=== PATIENT | female | born 1975 | race Hispanic/Latino ===

== ENCOUNTER 2018-07-20 18:54 | Observation (INO) | payer BC, OTHER ==
[2018-07-20 19:08] VITALS: BMI 30.9
[2018-07-20] MEDS ORDERED: Morphine 2 mg/ml ISec IVP STA (19:42)
[2018-07-20] MEDS ORDERED: Sodium Chloride 0.9% 1,000 ML IV STA (19:42)
--- NOTE | 2018-07-20 19:53 | ED PDOC ---
Arrival/HPI - General Chief Complaint: Abdominal Pain Time Seen by Provider: 07/20/18 19:27 Historian: Patient - History of Present Illness Narrative History of Present Illness (Text): 07/20/18 19:50 A 43 year old male, whose past medical history includes, laproscopic ovarian cystectomy, past bowel perforation secondary to bowel obstruction, ADHD, questionable Alessandro- Parkinson's- White (WPW). who presents to emergency departm ent complaint of onset of mid abdominal discomfort today. Patent states pain is severe. Prior she states she fell to the ground felt like she was going to pass out. She states pain has progressively worsened throughout the day. Patient denies history of any chest pain, nausea, vomiting, diarrhea , headache, back pain, no urinary complaints, or any other complaints. Time/Duration: Other (Today) Symptom Onset: Sudden Symptom Course: Unchanged, Worsening Activities at Onset: Rest, Light Context: Home Past Medical History - Provider Review Nursing Documentation Reviewed: Yes - Past History Past History: No Previous - Infectious Disease Hx of Infectious Diseases: None - Tetanus Immunization Tetanus Immunization: Unknown - Pulmonary Hx Asthma: Yes - Hematological/Oncological Hx Blood Transfusions: No Hx Blood Transfusion Reaction: No - Musculoskeletal/Rheumatological Hx Falls: No - Gastrointestinal Hx Bowel Surgery: Yes Hx Nausea: Yes - Psychiatric Hx Depression: No Hx Emotional Abuse: No Hx Physical Abuse: No Hx Substance Use: No - Surgical History Hx Section: Yes Hx Tonsillectomy: Yes Other/Comment: Perforated bowel during procedure - Anesthesia Hx Anesthesia: Yes Hx Anesthesia Reactions: No Hx Malignant Hyperthermia: No - Suicidal Assessment Feels Threatened In Home Enviroment: No Family/Social History - Physician Review Nursing Documentation Reviewed: Yes Family/Social History: No Known Family HX Smoking Status: Former Smoker Hx Alcohol Use: Yes (occasionally) Frequency of alcohol use: Socially Hx Substance Use: No Hx Substance Use Treatment: No Allergies/Home Meds Allergies/Adverse Reactions: Allergies No Known Allergies Allergy (Verified 07/20/18 19:11) Home Medications: Home Meds Medication Instructions Recorded Confirmed Methylphenidate Hydrochlorid 54 mg PO DAILY 07/22/13 12/25/13 [Concerta] Review of Systems - Physician Review All systems were reviewed & negative as marked: Yes - Review of Systems Cardiovascular: absent: Chest Pain Gastrointestinal: Abdominal Pain. absent: Diarrhea, Nausea, Vomiting Genitourinary Female: absent: Urine Output Changes Neurological: absent: Headache Physical Exam Vital Signs Reviewed: Yes Vital Signs Temp Pulse Resp BP Pulse Ox 07/20/18 19:08 98.4 F 69 18 142/90 99 Temperature: Afebrile Blood Pressure: Normal Pulse: Regular Respiratory Rate: Normal Appearance: Positive for: Well-Appearing, Non-Toxic, Comfortable Pain Distress: None Mental Status: Positive for: Alert and Oriented X 3 - Systems Exam Head: Present: Atraumatic, Normocephalic Pupils: Present: PERRL Extroacular Muscles: Present: EOMI Conjunctiva: Present: Normal Mouth: Present: Moist Mucous Membranes Neck: Present: Normal Range of Motion Respiratory/Chest: Present: Clear to Auscultation, Good Air Exchange. No: Respiratory Distress, Accessory Muscle Use Cardiovascular: Present: Regular Rate and Rhythm, Normal S1, S2. No: Murmurs Abdomen: Present: Tenderness (positive diffuse abdominal tenderness. greater in the mid- abdomen.), Normal Bowel Sounds (positive bowel sounds). No: Distention, Peritoneal Signs Back: Present: Normal Inspection Upper Extremity: Present: Normal Inspection. No: Cyanosis, Edema Lower Extremity: Present: Normal Inspection. No: Edema Neurological: Present: GCS=15, CN II-XII Intact, Speech Normal Skin: Present: Warm, Dry, Normal Color. No: Rashes Psychiatric: Present: Alert, Oriented x 3, Normal Insight, Normal Concentration Medical Decision Making ED Course and Treatment: 07/20/18 19:54 Impression: A 43 year old female presents to the emergency department with a complaint of sudden onset abdominal pain. Plan: -- Abdomen/Pelvis CT -- Head CT -- EKG -- Chest X-ray -- Urinalysis -- Labs -- Morphine, Zofran, and IV Fluids -- Reassess and disposition Prior Visits: Notes and results from previous visits were reviewed. Progress Notes: 07/20/18 21:51 CT Abdomen and Pelvis Without IV contrast CLINICAL HISTORY: Abd. pain and feeling faint TECHNIQUE: Axial computed tomography images of the abdomen and pelvis without intravenous contrast. CONTRAST: No IV contrast. COMPARISON: None provided. FINDINGS: LUNG BASES: The lung bases appear clear. No pleural effusions are seen. LIVER: Unremarkable. GALLBLADDER AND BILE DUCTS: The gallbladder appears within normal limits. No radioopaque gallstones are seen. No biliary ductal dilatation is evident. PANCREAS: Unremarkable. SPLEEN: Unremarkable. ADRENAL GLANDS: Unremarkable. KIDNEYS, URETERS, AND BLADDER: The kidneys appear within normal limits. There is no hydronephrosis or hydroureter. No urinary calculi are seen. STOMACH AND BOWEL: Unremarkable appearance of the stomach and bowel. No evidence of bowel obstruction. No evidence suggesting enteritis or colitis. APPENDIX: No evidence of acute appendicitis on CT examination. PERITONEUM: No free fluid. No free air. LYMPH NODES: No lymphadenopathy is evident. REPRODUCTIVE: Uterus and ovaries are unremarkable. VASCULATURE: No evidence of abdominal aortic aneurysm. BONES: No aggressive appearing osseous lesion. No acute osseous pathology evident. IMPRESSION: No acute intra-abdominal or pelvic abnormality. 07/20/18 21:51 CT Head without Intravenous Contrast. CLINICAL HISTORY: Near syncope TECHNIQUE: Axial computed tomography images of the head/brain without intravenous contrast. 967.43 mGy-cm COMPARISON: None provided. FINDINGS: BRAIN No acute intraparenchymal hemorrhage. No mass lesion. No CT evidence for acute territorial infarct. No midline shift or extra-axial collections. VENTRICLES: No hydrocephalus. ORBITS: The orbits are unremarkable. SINUSES AND MASTOIDS: The mastoid air cells are clear. Chronic pansinusitis. BONES: No fracture. SOFT TISSUES: Unremarkable. IMPRESSION: Chronic pansinusitis. No acute intracranial abnormality. 07/20/18 22:10 Case was discussed with the medical office asst and Dr Michelle, who accepts to the hospitalist service. - Lab Interpretations I have reviewed the lab results: Yes - RAD Interpretation Radiology Orders: 07/20/18 19:41 CHEST PORTABLE [RAD] Stat 07/20/18 19:42 ABD & PELVIS W/O PO OR IV CONT [CT] Stat 07/20/18 19:43 HEAD W/O CONTRAST [CT] Stat - EKG Interpretation Interpreted by ED Physician: Yes Type: 12 lead EKG - Medication Orders Current Medication Orders: Sodium Chloride (Sodium Chloride 0.9%) 1,000 mls @ 999 mls/hr IV .Q1H1M STA Stop: 07/20/18 20:42 Discontinued Medications Morphine Sulfate (Morphine) 4 mg IVP STAT STA Stop: 07/20/18 19:43 Ondansetron HCl (Zofran Inj) 4 mg IVP ONCE ONE Stop: 07/20/18 19:43 - Scribe Statement The provider has reviewed the documentation as recorded by the Scribe Anabella Fung Provider Dahlia Attestation: All medical record entries made by the Scribe were at my direction and personally dictated by me. I have reviewed the chart and agree that the record accurately reflects my personal performance of the history, physical exam, medical decision making, and the department course for this patient. I have also personally directed, reviewed, and agree with the discharge instructions and disposition. Disposition/Present on Arrival - Present on Arrival Any Indicators Present on Arrival: No History of DVT/PE: No History of Uncontrolled Diabetes: No Urinary Catheter: No History of Decub. Ulcer: No History Surgical Site Infection Following: None - Disposition Have Diagnosis and Disposition been Completed?: Yes Diagnosis: Near syncope, Abdominal pain Disposition: HOSPITALIZED Disposition Time: 22:11 Patient Problems: Current Active Problems Problem Status Onset Abdominal pain Acute Near syncope Acute Condition: STABLE Referrals: Sean Cooper MD [Primary Care Provider] - Follow up with primary Forms: Vert[employer] (Syriac)
[2018-07-20 20:05] LABS: HEMOGLOBIN 13.7 g/dL (12.0-16.0); MEAN CELL VOLUME 90.3 fl (80.0-105.0); MEAN CORPUSCULAR HEMOGLOBIN 30.9 pg (25.0-35.0); MEAN CORPUSCULAR HGB CONC 34.3 g/dl (31.0-37.0); MEAN PLATELET VOLUME 10.3 fl (7.0-11.0); RBC 4.43 10^6/uL (3.5-6.1); RED CELL DISTRIBUTION WIDTH 12.8 % (11.5-14.5); WHITE BLOOD COUNT 10.7 10^3/uL (4.5-11.0)
[2018-07-20 20:36] LABS: ALB/GLOB RATIO 1.3 (1.1-1.8); ALBUMIN 4.6 g/dL (3.0-4.8); ALT/SGPT 25 U/L (7-56); AST/SGOT 25 U/L (14-36); BLOOD UREA NITROGEN 18 mg/dL (7-21); CALCIUM 9.8 mg/dL (8.4-10.5); GFR NON-AFRICAN AMERICAN > 60; LIPASE 110 U/L (23-300)
[2018-07-20 20:55] LABS: TROPONIN I < 0.01 ng/mL
[2018-07-20 22:23] LABS: URINE APPEARANCE CLEAR (CLEAR); URINE BILIRUBIN NEGATIVE (NEGATIVE); URINE BLOOD TRACE-INTACT (NEGATIVE); URINE GLUCOSE (UA) NEGATIVE (NEGATIVE); URINE LEUKOCYTE ESTERASE TRACE Leu/uL (NEGATIVE); URINE PROTEIN NEGATIVE mg/dL (<30 mg/dL); URINE UROBILINOGEN 0.2 E.U./dL (<1 E.U./dL)
[2018-07-21] MEDS: POLYETHYLENE GLYCOL 3350 17 GM/Dose PACKET PO SCH ×2 (00:03→10:32)
[2018-07-21] MEDS: Sodium Chloride 0.9% 1,000 ML IV SCH ×2 (00:03→06:59)
[2018-07-21 00:28] LABS: BARBITURATES, UR NEGATIVE (NEGATIVE); BENZODIAZEPINES, UR NEGATIVE (NEGATIVE); OPIATES, UR POSITIVE (NEGATIVE); PHENCYCLIDINE, UR NEGATIVE (NEGATIVE)
--- NOTE | 2018-07-21 02:16 | CP.PCM.HP ---
<VidaLudwin - Last Filed: 07/21/18 22:47> History of Present Illness - History of Present Illness History of Present Illness: Ludwin Mcpherson DO PGY1. H&P for Hospitalist Service C.C: abdominal pain 43 y/o female with PMH of SBOx2 presents to ED for one day of salvador-umbilical pain that's sharp, intermittent, 6-9/10, radiates to lateral abdominal wall b/l, relieved by b/l leg flexion, worsens in supine position, not related to food ingestion but she ate in a restaurant the night before. Patient started having this pain in am after finishing her daily exercise. Pain is associated with nausea, chills, diaphoresis and near syncope. She denied vomiting, hematemesis, blood per rectum, dark stool fever. She used OTC gas-X, Tums that was not effective. Her LMP was on 07/03 and denied having any vaginal bleeding or symptoms. Patient denies chest pain, palpitations, headache, vomiting, diarrhea, back pain, urinary urgency/frequency. 12 points ROS reviewed with positive finding as above. 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) PSH: laproscopic ovarian cystectomy Meds: OTC gas-X, Tums ALL: NKDA Soc Hx: ex-smoking, denies alcohol, drug use Fam Hx: no contributory Present on Admission - Present on Admission Any Indicators Present on Admission: No Past Patient History - Infectious Disease Hx of Infectious Diseases: None - Tetanus Immunizations Tetanus Immunization: Unknown - Past Social History Smoking Status: Former Smoker - PULMONARY Hx Asthma: Yes - HEMATOLOGICAL/ONCOLOGICAL Hx Blood Transfusions: No Hx Blood Transfusion Reaction: No - MUSCULOSKELETAL/RHEUMATOLOGICAL Hx Falls: No - GASTROINTESTINAL Hx Bowel Surgery: Yes Hx Nausea: Yes - PSYCHIATRIC Hx Depression: No Hx Emotional Abuse: No Hx Physical Abuse: No Hx Substance Use: No - SURGICAL HISTORY Hx Section: Yes Hx Tonsillectomy: Yes Other/Comment: Perforated bowel during procedure - ANESTHESIA Hx Anesthesia: Yes Hx Anesthesia Reactions: No Hx Malignant Hyperthermia: No Meds Allergies/Adverse Reactions: Allergies Allergy/AdvReac Type Severity Reaction Status Date / Time No Known Allergies Allergy Verified 07/20/18 19:11 Physical Exam - Constitutional Appears: Well, No Acute Distress - Head Exam Head Exam: ATRAUMATIC, NORMAL INSPECTION, NORMOCEPHALIC - Eye Exam Eye Exam: EOMI, Normal appearance, PERRL Pupil Exam: NORMAL ACCOMODATION, PERRL - ENT Exam ENT Exam: Mucous Membranes Moist, Normal Exam - Neck Exam Neck exam: Positive for: Normal Inspection - Respiratory Exam Respiratory Exam: Clear to Auscultation Bilateral, NORMAL BREATHING PATTERN - Cardiovascular Exam Cardiovascular Exam: REGULAR RHYTHM, RRR, +S1, +S2. absent: Gallop, Rubs - GI/Abdominal Exam GI & Abdominal Exam: Normal Bowel Sounds, Soft. absent: Tenderness - Extremities Exam Extremities exam: Positive for: normal inspection - Back Exam Back exam: NORMAL INSPECTION - Neurological Exam Neurological exam: Alert, CN II-XII Intact, Normal Gait, Oriented x3, Reflexes Normal - Psychiatric Exam Psychiatric exam: Normal Affect, Normal Mood - Skin Skin Exam: Dry, Intact, Normal Color, Warm Results - Vital Signs Recent Vital Signs: Last Vital Signs Temp 98.4 F 07/20/18 19:08 Pulse 62 07/21/18 01:41 Resp 18 07/21/18 01:41 BP 118/76 07/21/18 01:41 Pulse Ox 98 07/21/18 01:41 - Labs Result Diagrams: 07/20/18 19:41 07/20/18 20:10 Labs: Laboratory Results - last 24 hr 07/20/18 07/20/18 07/20/18 19:41 20:10 21:59 WBC 10.7 RBC 4.43 Hgb 13.7 Hct 40.0 MCV 90.3 MCH 30.9 MCHC 34.3 RDW 12.8 Plt Count 298 MPV 10.3 Sodium 137 Potassium 3.9 Chloride 104 Carbon Dioxide 25 Anion Gap 12 BUN 18 Creatinine 0.8 Est GFR ( Amer) > 60 Est GFR (Non-Af Amer) > 60 Random Glucose 108 Calcium 9.8 Total Bilirubin 0.4 AST 25 ALT 25 Alkaline Phosphatase 65 Lactate Dehydrogenase 451 Total Creatine Kinase 63 Troponin I < 0.01 Total Protein 8.2 Albumin 4.6 Globulin 3.6 Albumin/Globulin Ratio 1.3 Lipase 110 Urine Color straw Urine Appearance Clear Urine pH 6.0 Ur Specific [employer] 1.020 Urine Protein Negative Urine Glucose (UA) Negative Urine Ketones Negative Urine Blood Trace-intact H Urine Nitrate Negative Urine Bilirubin Negative Urine Urobilinogen 0.2 Ur Leukocyte Esterase Trace H Urine RBC 5 - 10 Urine WBC 2 - 5 Ur Epithelial Cells 4 - 5 Urine Opiates Screen Urine Methadone Screen Ur Barbiturates Screen Ur Phencyclidine Scrn Ur Amphetamines Screen U Benzodiazepines Scrn U Oth Cocaine Metabols U Cannabinoids Screen 07/20/18 23:47 WBC RBC Hgb Hct MCV MCH MCHC RDW Plt Count MPV Sodium Potassium Chloride Carbon Dioxide Anion Gap BUN Creatinine Est GFR ( Amer) Est GFR (Non-Af Amer) Random Glucose Calcium Total Bilirubin AST ALT Alkaline Phosphatase Lactate Dehydrogenase Total Creatine Kinase Troponin I Total Protein Albumin Globulin Albumin/Globulin Ratio Lipase Urine Color Urine Appearance Urine pH Ur Specific [employer] Urine Protein Urine Glucose (UA) Urine Ketones Urine Blood Urine Nitrate Urine Bilirubin Urine Urobilinogen Ur Leukocyte Esterase Urine RBC Urine WBC Ur Epithelial Cells Urine Opiates Screen Positive H Urine Methadone Screen Negative Ur Barbiturates Screen Negative Ur Phencyclidine Scrn Negative Ur Amphetamines Screen Negative U Benzodiazepines Scrn Negative U Oth Cocaine Metabols Negative U Cannabinoids Screen Negative Assessment & Plan - Assessment and Plan (Free Text) Assessment: 43 y/o female with PMH of SBO x2 presents to ED for one day of salvador-umbilical pain. CT abdomen/pelvis is normal. CT head shows no ICH Plan: Abdominal pain: -h/o SBO X2 with bowel resection x1. medical management x1 -CT A/P: no acute intra-abdominal or pelvic abnormality -morphine prn for pain -continue zofran, pantoprazole, miralax Near syncope: -h/o questionable Alessandro-Parkinson's-White (WPW) holter monitor x4 weeks did not show any abnormalities -CT head: no acute intracranial abnormality -CXR: no acute pathology -EKG ordered -cardiac monitoring -NS @125 ml/hr -supp O2 prn -UA, UDS Prophylaxis: -DVT: SCD -GI ppx: protonix -Clear liquid diet Dispo: Patient admitted for observation Case reviewed and plan discussed with attending Dr Michelle <Cindy Michelle - Last Filed: 07/22/18 06:35> Results - Vital Signs Recent Vital Signs: Last Vital Signs Temp 97.9 F 07/21/18 12:00 Pulse 71 07/21/18 12:00 Resp 21 07/21/18 12:00 BP 109/71 07/21/18 12:00 Pulse Ox 98 07/21/18 05:59 - Labs Result Diagrams: 07/21/18 05:20 07/21/18 05:20 Labs: Laboratory Results - last 24 hr 07/21/18 07/21/18 05:20 05:20 WBC 7.4 D RBC 4.28 Hgb 12.9 Hct 39.1 MCV 91.4 MCH 30.1 MCHC 33.0 RDW 13.1 Plt Count 286 MPV 10.4 Gran % 45.2 L Lymph % (Auto) 38.4 H Donley % (Auto) 9.7 H Eos % (Auto) 6.2 H Baso % (Auto) 0.5 Gran # 3.33 Lymph # (Auto) 2.8 Donley # (Auto) 0.7 H Eos # (Auto) 0.5 Baso # (Auto) 0.04 Sodium 137 Potassium 4.1 Chloride 106 Carbon Dioxide 25 Anion Gap 10 BUN 11 Creatinine 0.7 Est GFR ( Amer) > 60 Est GFR (Non-Af Amer) > 60 Random Glucose 96 Calcium 9.2 Phosphorus 4.5 Magnesium 1.7 Total Bilirubin 0.6 AST 16 ALT 34 Alkaline Phosphatase 57 Total Protein 6.8 Albumin 3.8 Globulin 3.1 Albumin/Globulin Ratio 1.2 Attending/Attestation - Attestation I have personally seen and examined this patient.: Yes I have fully participated in the care of the patient.: Yes I have reviewed all pertinent clinical information: Yes
[2018-07-21 06:00] VITALS: O2SAT 98
[2018-07-21 06:31] LABS: BASO # 0.04 K/mm3 (0.0-2.0); BASO % 0.5 % (0.0-3.0); EOS # 0.5 (0.0-0.7); EOS % 6.2 % (1.5-5.0); GRAN # 3.33 (1.4-6.5); GRAN % 45.2 % (50.0-68.0); HEMOGLOBIN 12.9 g/dL (12.0-16.0); LYMPH # 2.8 (1.2-3.4); LYMPH % 38.4 % (22.0-35.0); MEAN CELL VOLUME 91.4 fl (80.0-105.0); MEAN CORPUSCULAR HEMOGLOBIN 30.1 pg (25.0-35.0); MEAN PLATELET VOLUME 10.4 fl (7.0-11.0); MONO # 0.7 (0.1-0.6); MONO % 9.7 % (1.0-6.0); RBC 4.28 10^6/uL (3.5-6.1); RED CELL DISTRIBUTION WIDTH 13.1 % (11.5-14.5); WHITE BLOOD COUNT 7.4 10^3/uL (4.5-11.0)
[2018-07-21 06:48] LABS: ALB/GLOB RATIO 1.2 (1.1-1.8); ALBUMIN 3.8 g/dL (3.0-4.8); ALT/SGPT 34 U/L (7-56); AST/SGOT 16 U/L (14-36); BLOOD UREA NITROGEN 11 mg/dL (7-21); CALCIUM 9.2 mg/dL (8.4-10.5); GFR NON-AFRICAN AMERICAN > 60
--- NOTE | 2018-07-21 08:55 | RAD ---
Date of service: 07/20/2018 HISTORY: abdominal pain COMPARISON: 12/26/2013 FINDINGS: LUNGS: No active pulmonary disease. PLEURA: No significant pleural effusion identified, no pneumothorax apparent. CARDIOVASCULAR: No aortic atherosclerotic calcification present. Normal cardiac size. No pulmonary vascular congestion. OSSEOUS STRUCTURES: No significant abnormalities. VISUALIZED UPPER ABDOMEN: Normal. OTHER FINDINGS: None. IMPRESSION: No active disease.
--- NOTE | 2018-07-21 09:03 | CT ---
Date of service: 07/20/2018 PROCEDURE: CT HEAD WITHOUT CONTRAST. HISTORY: near syncope COMPARISON: None available. TECHNIQUE: Axial computed tomography images were obtained through the head/brain without intravenous contrast. Radiation dose: Total exam DLP = 967.43 mGy-cm. This CT exam was performed using one or more of the following dose reduction techniques: Automated exposure control, adjustment of the mA and/or kV according to patient size, and/or use of iterative reconstruction technique. FINDINGS: HEMORRHAGE: No intracranial hemorrhage. BRAIN: Normal rodriguez-white matter differentiation and density are appreciated throughout the cerebrum and cerebellum with the brainstem appearing unremarkable as well. There is no mass effect. There is no suspicious extra-axial fluid collection and the midline brain anatomy appears diffusely unremarkable. VENTRICLES: Unremarkable. No hydrocephalus. CALVARIUM: Unremarkable. PARANASAL SINUSES: Multifocal advanced ethmoid sinusitis with mild bilateral maxillary sinus disease appreciated. MASTOID AIR CELLS: Unremarkable as visualized. No inflammatory changes. OTHER FINDINGS: None. IMPRESSION: Unremarkable unenhanced head CT. Concordant preliminary report from [facility], 07/20/2018 9:35 p.m..
--- NOTE | 2018-07-21 10:50 | CT ---
Date of service: 07/20/2018 PROCEDURE: CT Abdomen and Pelvis without intravenous contrast HISTORY: pain COMPARISON: None. TECHNIQUE: Technique. Contrast dose: Radiation dose: Total exam DLP = 1095.02 mGy-cm. This CT exam was performed using one or more of the following dose reduction techniques: Automated exposure control, adjustment of the mA and/or kV according to patient size, and/or use of iterative reconstruction technique. FINDINGS: LOWER THORAX: Unremarkable. LIVER: Unremarkable. No gross lesion or ductal dilatation. GALLBLADDER AND BILE DUCTS: Unremarkable. PANCREAS: Unremarkable. No gross lesion or ductal dilatation. SPLEEN: Unremarkable. ADRENALS: Unremarkable. No mass. KIDNEYS AND URETERS: Unremarkable. No hydronephrosis. No solid mass. VASCULATURE: Unremarkable. No aortic aneurysm. No aortic atherosclerotic calcification or mural plaque present. BOWEL: Unremarkable. No obstruction. No gross mural thickening. APPENDIX: Unremarkable. Normal appendix. PERITONEUM: Unremarkable. No free fluid. No free air. LYMPH NODES: Unremarkable. No enlarged lymph nodes. BLADDER: Unremarkable. REPRODUCTIVE: Unremarkable. BONES: No acute fracture. OTHER FINDINGS: The report concurs with the preliminary [facility] report IMPRESSION: No acute intra-abdominal findings
[2018-07-21 12:19] VITALS: BP 109/71; PULSE 71; RESP 21; TEMP 97.9
--- NOTE | 2018-07-21 13:25 | CP.PCM.DIS ---
<Maria Luisa Mitchell L - Last Filed: 07/21/18 13:26> Provider - Provider Date of Admission: 07/20/18 22:03 Attending physician: Suleiman Parker MD Primary care physician: Sean Cooper MD Consults: none Time Spent in preparation of Discharge (in minutes): 35 Diagnosis - Discharge Diagnosis (1) Abdominal pain Status: Resolved Hospital Course - Lab Results Lab Results: Most Recent Lab Values WBC 7.4 10^3/uL (4.5-11.0) D 07/21/18 05:20 RBC 4.28 10^6/uL (3.5-6.1) 07/21/18 05:20 Hgb 12.9 g/dL (12.0-16.0) 07/21/18 05:20 Hct 39.1 % (36.0-48.0) 07/21/18 05:20 MCV 91.4 fl (80.0-105.0) 07/21/18 05:20 MCH 30.1 pg (25.0-35.0) 07/21/18 05:20 MCHC 33.0 g/dl (31.0-37.0) 07/21/18 05:20 RDW 13.1 % (11.5-14.5) 07/21/18 05:20 Plt Count 286 10^3/uL (120.0-450.0) 07/21/18 05:20 MPV 10.4 fl (7.0-11.0) 07/21/18 05:20 Gran % 45.2 % (50.0-68.0) L 07/21/18 05:20 Lymph % (Auto) 38.4 % (22.0-35.0) H 07/21/18 05:20 Osborne % (Auto) 9.7 % (1.0-6.0) H 07/21/18 05:20 Eos % (Auto) 6.2 % (1.5-5.0) H 07/21/18 05:20 Baso % (Auto) 0.5 % (0.0-3.0) 07/21/18 05:20 Gran # 3.33 (1.4-6.5) 07/21/18 05:20 Lymph # (Auto) 2.8 (1.2-3.4) 07/21/18 05:20 Osborne # (Auto) 0.7 (0.1-0.6) H 07/21/18 05:20 Eos # (Auto) 0.5 (0.0-0.7) 07/21/18 05:20 Baso # (Auto) 0.04 K/mm3 (0.0-2.0) 07/21/18 05:20 Sodium 137 mmol/L (132-148) 07/21/18 05:20 Potassium 4.1 mmol/L (3.6-5.0) 07/21/18 05:20 Chloride 106 mmol/L (98-107) 07/21/18 05:20 Carbon Dioxide 25 mmol/L (21-33) 07/21/18 05:20 Anion Gap 10 (10-20) 07/21/18 05:20 BUN 11 mg/dL (7-21) 07/21/18 05:20 Creatinine 0.7 mg/dl (0.7-1.2) 07/21/18 05:20 Est GFR ( Amer) > 60 07/21/18 05:20 Est GFR (Non-Af Amer) > 60 07/21/18 05:20 Random Glucose 96 mg/dL (70-110) 07/21/18 05:20 Calcium 9.2 mg/dL (8.4-10.5) 07/21/18 05:20 Phosphorus 4.5 mg/dL (2.5-4.5) 07/21/18 05:20 Magnesium 1.7 mg/dL (1.7-2.2) 07/21/18 05:20 Total Bilirubin 0.6 mg/dL (0.2-1.3) 07/21/18 05:20 AST 16 U/L (14-36) 07/21/18 05:20 ALT 34 U/L (7-56) 07/21/18 05:20 Alkaline Phosphatase 57 U/L (38-126) 07/21/18 05:20 Lactate Dehydrogenase 451 U/L (333-699) 07/20/18 20:10 Total Creatine Kinase 63 U/L (35-230) 07/20/18 20:10 Troponin I < 0.01 ng/mL 07/20/18 20:10 Total Protein 6.8 g/dL (5.8-8.3) 07/21/18 05:20 Albumin 3.8 g/dL (3.0-4.8) 07/21/18 05:20 Globulin 3.1 gm/dL 07/21/18 05:20 Albumin/Globulin Ratio 1.2 (1.1-1.8) 07/21/18 05:20 Lipase 110 U/L (23-300) 07/20/18 20:10 Urine Color straw (YELLOW) 07/20/18 21:59 Urine Appearance Clear (CLEAR) 07/20/18 21:59 Urine pH 6.0 (4.7-8.0) 07/20/18 21:59 Ur Specific [place] 1.020 (1.005-1.035) 07/20/18 21:59 Urine Protein Negative mg/dL (<30 mg/dL) 07/20/18 21:59 Urine Glucose (UA) Negative mg/dL (NEGATIVE) 07/20/18 21:59 Urine Ketones Negative mg/dL (NEGATIVE) 07/20/18 21:59 Urine Blood Trace-intact (NEGATIVE) H 07/20/18 21:59 Urine Nitrate Negative (NEGATIVE) 07/20/18 21:59 Urine Bilirubin Negative (NEGATIVE) 07/20/18 21:59 Urine Urobilinogen 0.2 E.U./dL (<1 E.U./dL) 07/20/18 21:59 Ur Leukocyte Esterase Trace Zana/uL (NEGATIVE) H 07/20/18 21:59 Urine RBC 5 - 10 /hpf (0-2) 07/20/18 21:59 Urine WBC 2 - 5 /hpf (0-6) 07/20/18 21:59 Ur Epithelial Cells 4 - 5 /hpf (0-5) 07/20/18 21:59 Urine Opiates Screen Positive (NEGATIVE) H 07/20/18 23:47 Urine Methadone Screen Negative (NEGATIVE) 07/20/18 23:47 Ur Barbiturates Screen Negative (NEGATIVE) 07/20/18 23:47 Ur Phencyclidine Scrn Negative (NEGATIVE) 07/20/18 23:47 Ur Amphetamines Screen Negative (NEGATIVE) 07/20/18 23:47 U Benzodiazepines Scrn Negative (NEGATIVE) 07/20/18 23:47 U Oth Cocaine Metabols Negative (NEGATIVE) 07/20/18 23:47 U Cannabinoids Screen Negative (NEGATIVE) 07/20/18 23:47 - Hospital Course Hospital Course: On admission: 43 y/o female with PMH of SBOx2 presents to ED for one day of salvador-umbilical pain that's sharp, intermittent, 6-9/10, radiates to lateral abdominal wall b/l, relieved by b/l leg flexion, worsens in supine position, not related to food ingestion but she ate in a restaurant the night before. Patient started having this pain in am after finishing her daily exercise. Pain is associated with nausea, chills, diaphoresis and near syncope. She denied vom iting, hematemesis, blood per rectum, dark stool fever. She used OTC gas-X, Tums that was not effective. Her LMP was on 07/03 and denied having any vaginal bleeding or symptoms. Patient denies chest pain, palpitations, headache, vomiting, diarrhea, back pain, urinary urgency/frequency. During hospital stay: Patient had CT of abdomen and pelvis which showed no acute intra abdominal or pelvic abnormality. Patient was given morphine for pain, zofran, pantoprazole, miralax. Patient also had CT head done which showed no acute intracranial abnormality. EKG did not show any WPW. CXR was negative for any acute pathology. Patient tolerated clear liquid diet and was advanced to soft diet which she tolerated. Patient was optimized for discharge and prescribed zofran and omeprazole. Please see EMR for full summary of patient's hospital course. - Date & Time of H&P Date of H&P: 07/21/18 Time of H&P: 02:11 Discharge Exam - Additional Findings Additional findings: - Constitutional Appears: Well, No Acute Distress - Head Exam Head Exam: ATRAUMATIC, NORMOCEPHALIC - Eye Exam Eye Exam: EOMI, Normal appearance - ENT Exam ENT Exam: Mucous Membranes Moist, Normal Exam - Neck Exam Neck exam: Positive for: Normal Inspection - Respiratory Exam Respiratory Exam: Clear to Auscultation Bilateral, NORMAL BREATHING PATTERN - Cardiovascular Exam Cardiovascular Exam: REGULAR RHYTHM, RRR, +S1, +S2. absent: Gallop, Rubs - GI/Abdominal Exam GI & Abdominal Exam: Normal Bowel Sounds, Soft. absent: Tenderness - Extremities Exam Extremities exam: Positive for: normal inspection - Back Exam Back exam: NORMAL INSPECTION - Neurological Exam Neurological exam: Alert, CN II-XII Intact, Oriented x3 - Psychiatric Exam Psychiatric exam: Normal Affect, Normal Mood - Skin Skin Exam: Dry, Intact, Normal Color, Warm Discharge Plan - Discharge Medications Prescriptions: RX: Omeprazole 20 mg PO DAILY PRN 14 Days tablet.dr MIRANDA Reason: Dyspepsia Ondansetron [Zofran] 4 mg PO DAILY PRN 14 Days tab PRN Reason: Nausea/Vomiting - Follow Up Plan Condition: STABLE Disposition: HOME/ ROUTINE Patient education suggested?: Yes Instructions: Syncope (Fainting) (DC), Stomach Ache and Stomach Upset, Acute Abdominal Pain (DC), Acute Abdominal Pain (GEN) Additional Instructions: Please follow up with your primary medical doctor within one week. You have been prescribed omeprazole and zofran. Please take these as they are prescribed. Resume your home medications as prescribed. Return to ED if symptoms return or worsen. Referrals: Sean Cooper MD [Primary Care Provider] - <Suleiman Parker - Last Filed: 07/22/18 13:49> Provider - Provider Date of Admission: 07/20/18 22:03 Attending physician: Suleiman Parker MD Primary care physician: Sean Cooper MD Hospital Course - Lab Results Lab Results: Micro Results 07/20/18 21:45 Urine,Clean Catch Urine Culture - Final No Growth (<1,000 CFU/ML) Most Recent Lab Values WBC 7.4 10^3/uL (4.5-11.0) D 07/21/18 05:20 RBC 4.28 10^6/uL (3.5-6.1) 07/21/18 05:20 Hgb 12.9 g/dL (12.0-16.0) 07/21/18 05:20 Hct 39.1 % (36.0-48.0) 07/21/18 05:20 MCV 91.4 fl (80.0-105.0) 07/21/18 05:20 MCH 30.1 pg (25.0-35.0) 07/21/18 05:20 MCHC 33.0 g/dl (31.0-37.0) 07/21/18 05:20 RDW 13.1 % (11.5-14.5) 07/21/18 05:20 Plt Count 286 10^3/uL (120.0-450.0) 07/21/18 05:20 MPV 10.4 fl (7.0-11.0) 07/21/18 05:20 Gran % 45.2 % (50.0-68.0) L 07/21/18 05:20 Lymph % (Auto) 38.4 % (22.0-35.0) H 07/21/18 05:20 Osborne % (Auto) 9.7 % (1.0-6.0) H 07/21/18 05:20 Eos % (Auto) 6.2 % (1.5-5.0) H 07/21/18 05:20 Baso % (Auto) 0.5 % (0.0-3.0) 07/21/18 05:20 Gran # 3.33 (1.4-6.5) 07/21/18 05:20 Lymph # (Auto) 2.8 (1.2-3.4) 07/21/18 05:20 Osborne # (Auto) 0.7 (0.1-0.6) H 07/21/18 05:20 Eos # (Auto) 0.5 (0.0-0.7) 07/21/18 05:20 Baso # (Auto) 0.04 K/mm3 (0.0-2.0) 07/21/18 05:20 Sodium 137 mmol/L (132-148) 07/21/18 05:20 Potassium 4.1 mmol/L (3.6-5.0) 07/21/18 05:20 Chloride 106 mmol/L (98-107) 07/21/18 05:20 Carbon Dioxide 25 mmol/L (21-33) 07/21/18 05:20 Anion Gap 10 (10-20) 07/21/18 05:20 BUN 11 mg/dL (7-21) 07/21/18 05:20 Creatinine 0.7 mg/dl (0.7-1.2) 07/21/18 05:20 Est GFR ( Amer) > 60 07/21/18 05:20 Est GFR (Non-Af Amer) > 60 07/21/18 05:20 Random Glucose 96 mg/dL (70-110) 07/21/18 05:20 Calcium 9.2 mg/dL (8.4-10.5) 07/21/18 05:20 Phosphorus 4.5 mg/dL (2.5-4.5) 07/21/18 05:20 Magnesium 1.7 mg/dL (1.7-2.2) 07/21/18 05:20 Total Bilirubin 0.6 mg/dL (0.2-1.3) 07/21/18 05:20 AST 16 U/L (14-36) 07/21/18 05:20 ALT 34 U/L (7-56) 07/21/18 05:20 Alkaline Phosphatase 57 U/L (38-126) 07/21/18 05:20 Lactate Dehydrogenase 451 U/L (333-699) 07/20/18 20:10 Total Creatine Kinase 63 U/L (35-230) 07/20/18 20:10 Troponin I < 0.01 ng/mL 07/20/18 20:10 Total Protein 6.8 g/dL (5.8-8.3) 07/21/18 05:20 Albumin 3.8 g/dL (3.0-4.8) 07/21/18 05:20 Globulin 3.1 gm/dL 07/21/18 05:20 Albumin/Globulin Ratio 1.2 (1.1-1.8) 07/21/18 05:20 Lipase 110 U/L (23-300) 07/20/18 20:10 Urine Color straw (YELLOW) 07/20/18 21:59 Urine Appearance Clear (CLEAR) 07/20/18 21:59 Urine pH 6.0 (4.7-8.0) 07/20/18 21:59 Ur Specific [place] 1.020 (1.005-1.035) 07/20/18 21:59 Urine Protein Negative mg/dL (<30 mg/dL) 07/20/18 21:59 Urine Glucose (UA) Negative mg/dL (NEGATIVE) 07/20/18 21:59 Urine Ketones Negative mg/dL (NEGATIVE) 07/20/18 21:59 Urine Blood Trace-intact (NEGATIVE) H 07/20/18 21:59 Urine Nitrate Negative (NEGATIVE) 07/20/18 21:59 Urine Bilirubin Negative (NEGATIVE) 07/20/18 21:59 Urine Urobilinogen 0.2 E.U./dL (<1 E.U./dL) 07/20/18 21:59 Ur Leukocyte Esterase Trace Zana/uL (NEGATIVE) H 07/20/18 21:59 Urine RBC 5 - 10 /hpf (0-2) 07/20/18 21:59 Urine WBC 2 - 5 /hpf (0-6) 07/20/18 21:59 Ur Epithelial Cells 4 - 5 /hpf (0-5) 07/20/18 21:59 Urine Opiates Screen Positive (NEGATIVE) H 07/20/18 23:47 Urine Methadone Screen Negative (NEGATIVE) 07/20/18 23:47 Ur Barbiturates Screen Negative (NEGATIVE) 07/20/18 23:47 Ur Phencyclidine Scrn Negative (NEGATIVE) 07/20/18 23:47 Ur Amphetamines Screen Negative (NEGATIVE) 07/20/18 23:47 U Benzodiazepines Scrn Negative (NEGATIVE) 07/20/18 23:47 U Oth Cocaine Metabols Negative (NEGATIVE) 07/20/18 23:47 U Cannabinoids Screen Negative (NEGATIVE) 07/20/18 23:47 Attending/Attestation - Attestation I have personally seen and examined this patient.: Yes I have fully participated in the care of the patient.: Yes I have reviewed all pertinent clinical information, including history, physical exam and plan: Yes Notes (Text): 07/22/18 13:46 Medical record note made by the resident after discussion with my direction and input after the patient was personally seen and examined by me. I have reviewed the chart and agree that the record accurately reflects by personal performance of the history, physical exam, data review, and medical decision-making, in the course for the patient. I have also personally directed the plan of care. 43 y/o female with PMH of SBOx2 was admitted with abdominal pain associated with nausea and vomiting. Patient had CT of abdomen and pelvis which showed no acute intra abdominal or pelvic abnormality. Patient has epigastric tenderness likely peptic ulcer disease. Abdominal pain has improved.Patient had normal Bowel movement.She is tolerating diet She had bowel movement prior to discharge Patient will be discharged home on oral PPI, She will follow up with PCP. Management plan was discussed in detail with patient. Education was provided.
--- NOTE | 2018-07-22 07:46 | CARD ---
APPROVED REPORT Date of service: 07/20/2018 EKG Measurement Heart [id number] <Conclusion> Normal sinus rhythm with sinus arrhythmia Normal ECG
== END 2018-07-21 17:00 | disposition home or self-care (01) ==
LOC: ED 18:54 → ERH 22:03 → 2RNO 07-21 02:07
PROVIDERS: ADMIT Hospitalist; ATTEND Internal Medicine
DX: K27.9 Peptic ulcer, site unspecified, unspecified as acute or chronic, without hemorrhage or perforation (principal); J32.4 Chronic pansinusitis; J45.909 Unspecified asthma, uncomplicated; F90.9 Attention-deficit hyperactivity disorder, unspecified type; Z98.891 History of uterine scar from previous surgery; Z87.891 Personal history of nicotine dependence; W19.XXXA Unspecified fall, initial encounter
CPT/HCPCS: 36415; 70450; 71045; 74176; 80053; 80324; 80345; 80346; 80349; 80353; 80358; 80361; 81001; 82550; 83615; 83690; 83735; 83992; 84100; 84484; 85025; 85027; 87086; 93005; 96374; 96375; 96376; 99285; C9113; G0378; J2270; J2405; J7030